=== PATIENT | female | born 1940 | race Caucasian/White ===

== ENCOUNTER 2018-05-03 08:58 | Emergency (ER) | payer SELFPAY ==
--- NOTE | 2018-05-03 09:09 | PDOC ---
Attending Attestation - Resident Resident Name: Robin Ortega - HPI HPI: 05/05/18 10:59 Pt presents to the ED complaining of anxiety and high blood pressure measurements at home. States that she has been compliant with her medicines but that she often feels upset about family situations and national events and this makes her blood pressure go up. Denies headache, chest pain or shortness of breath. - Physicial Exam PE: 05/05/18 11:05 Agree with resident exam. Patient is well appearing and in no acute distress. Lungs are clear. Heart has regular rate and rhythm. Abdomen is non tender. - Medical Decision Making 05/05/18 11:10 PT presents to the ED complaining of asymptomatic elevated BP. Patient is an extremely poor historian, despite attempts to use the utility appraiser line. Does not seem to have any other complaints. Will discharge julio with instructions to follow up with her PMD.
[2018-05-03 09:53] VITALS: TEMP 99.5; BMI 27.8
--- NOTE | 2018-05-03 09:56 | PDOC ---
History of Present Illness - General Stated Complaint: HIGH BP Time Seen by Provider: 05/03/18 09:09 - History of Present Illness Initial Comments: The patient is a 78F who is visiting her Sister from [facility] who presents today for evaluation of asymptomatic hypertension at home to 170/101. The patient states that she is concerned because of the elevated diastolic value. She reports that when her BP is elevated she will have associated R tinnitis and parietal RODRIGUEZ which she endorses intermittently this morning; however, she states that it is improving. The patient repeatedly states that she is concerned about various stressors in her life at the moment. She is worried that her BP medication does not work here , although it is the same medication she has been taking chronically. She has a history of anxiety treated with Alprazolam 0.5mg PO PRN. In the ED, the patient denies acute vision changes, tinnitis, or RODRIGUEZ. She also denies chest pain and SOB. The patient is returning home to [facility] in two weeks where her primary care doctor and Nuclear Spectroscopist reside. 05/03/18 09:50 Past History - Past Medical History Home Medications: Ambulatory Orders Alprazolam 0.5 mg PO DAILY 05/03/18 Bisoprolol 2.5MG/Hctz 6.25MG [Ziac (Nf)] 1 tab PO DAILY 05/03/18 Cholecalciferol (Vitamin D3) [Vitamin D3] 1,000 unit PO DAILY 05/03/18 Clopidogrel Bisulfate [Plavix] 75 mg PO DAILY 05/03/18 Olmesartan/Hydrochlorothiazide [Olmesartan-Hctz 40-25 mg Tab] 40 mg PO DAILY Pantoprazole Sodium [Protonix -] 20 mg PO DAILY 05/03/18 Rosuvastatin Calcium [Crestor] 20 mg PO DAILY 05/03/18 Review of Systems - Review of Systems Able to Perform ROS?: Yes (w/ use of poly operator) Comments:: GENERAL/CONSTITUTIONAL: No fever or chills. No weakness HEAD, EYES, EARS, NOSE AND THROAT: No acute change in vision. No ear pain or tinnitus CARDIOVASCULAR: No chest pain or shortness of breath RESPIRATORY: No cough GASTROINTESTINAL: No nausea, vomiting, diarrhea GENITOURINARY: No dysuria, frequency, or change in urination NEUROLOGIC: No headache, loss of consciousness, or change in strength/sensation ENDOCRINE: No increased thirst. No abnormal weight change 05/03/18 09:56 Is the patient limited Sammarinese proficient: Yes *Physical Exam - Physical Exam Comments: GENERAL: Awake, alert, and fully oriented HEAD: No signs of trauma, normocephalic, atraumatic EYES: Vision grossly intact, EOMI, sclera anicteric, conjunctiva clear ENT: Hearing grossly normal, nares patent, oropharynx clear without exudates. Moist mucosa NECK: Normal ROM, supple LUNGS: No distress, speaks full sentences, clear to auscultation bilaterally HEART: Regular rate and rhythm, normal S1 and S2, no murmurs appreciated, peripheral pulses normal and equal bilaterally ABDOMEN: Soft, nontender, normoactive bowel sounds. No guarding, no rebound. EXTREMITIES : Normal inspection, Normal range of motion, no edema. NEUROLOGICAL: Cranial nerves II through XII grossly intact. Rapid speech no focal sensorimotor deficits SKIN: Warm, Dry 05/03/18 09:57 Medical Decision Making - Medical Decision Making The patient is a 78F w/ a PMH of HTN, glaucoma s/p sx who presents from home with asymptomatic HTN to 170/101 ED Course The patient's repeat BP in the ED was 164/79. The patient denied any symptoms at this time The patient was counseled about maintaining her current appointments with her PCP and Nuclear Spectroscopist She was given return precautions Plan to DC pt with PCP/Cards f/u Patient is in agreement with the plan and verbalized understanding Dispo: Home w/ PCP f/u 05/03/18 10:08 *DC/Admit/Observation/Transfer Diagnosis at time of Disposition: Hypertension Qualifiers: Hypertension type: unspecified Qualified Code(s): I10 - Essential (primary) hypertension - Discharge Dispostion Disposition: HOME Condition at time of disposition: Stable Decision to Admit order: No - Referrals - Patient Instructions Printed Discharge Instructions: Essential Hypertension, DI for Anxiety -- Adult Additional Instructions: You were seen today in the Emergency Department for evaluation of high blood pressure at home without symptoms. Please review the handouts provided at discharge. Please keep your appointments with your Nuclear Spectroscopist and primary care doctor. Please let them know about your elevated blood pressure here. Return to the Emergency Department if you develop fevers, chest pain, trouble breathing, or any new concerning symptoms. Print Language: [id number] - Post Discharge Activity
[2018-05-03 10:11] VITALS: BP 164/79; PULSE 68
== END 2018-05-03 10:11 | disposition home or self-care (01) ==
LOC: JER 08:58
DX: I10 Essential (primary) hypertension (principal)
CPT/HCPCS: 99282-25